=== PATIENT | female | born 1930 | race Caucasian/White ===

== ENCOUNTER → 2017-02-02 | Outpatient (CLI) | payer MEDICARE, BC, OTHER ==
--- NOTE | 2017-02-02 14:31 | CT ---
EXAMINATION TYPE: CT pelvis wo con DATE OF EXAM: 02/02/2017 COMPARISON: NONE HISTORY: Pain in lower back robin unspecified hip pain CT DLP: 969.87 mGycm Automated exposure control for dose reduction was used. FINDINGS: Patient is status post bilateral hip arthroplasties, streak artifact may be limiting the exam. Acetab ular screws breach the anterior cortex the acetabulum bilaterally. Degenerative disc changes are pres ent in the visualized spine. No evident pelvic adenopathy. Urine filled urinary bladder is noted. No free fluid. Diverticular change present within the sigmoid colon. Uterus and adnexal structures are n ot present. Atheromatous changes present within the pelvic arterial supply. Calcifications present at the origins of the hamstring musculature. Difficult to exclude partial tears. IMPRESSION: NO ACUTE ABNORMALITIES EVIDENT. POSTOP CHANGES. 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 DIVERTICULOSIS.
--- NOTE | 2017-02-02 14:36 | CT ---
EXAMINATION TYPE: CT lumbar spine wo con DATE OF EXAM: 02/02/2017 COMPARISON: NONE HISTORY: Pain in lower back and unspecified hip pain CT DLP: 837.16 mGycm Automated exposure control for dose reduction was used. An unenhanced CT of the lumbar spine was performed. Bone and soft tissue window settings are submitt ed as well as coronal and sagittal reconstructions. FINDINGS: There are round lesions associated with the kidneys, 2 of which show increased attenuation within the left kidney, findings may represent cysts, proteinaceous cysts. Ectasia of the abdominal a tita measures 2.9 cm in the infrarenal location. Lack of contrast may limit the exam. There is anterolisthesis grade 1 L4-5. Loss of disc height is present greatest at L4-5 with associate d vacuum phenomenon, spondylosis. L1-L2: Normal disc space height. No disc herniation protrusion or central stenosis. No facet joint arthropathy. No evidence for foraminal encroachment. L2-L3: Posterior broad-based disc bulge causes minimal anterior mass effect on the thecal sac. No sig nificant central canal stenosis or foraminal encroachment. L3-L4: Posterior broad-based disc bulge causes mild anterior mass effect on the thecal sac. There is facet arthropathy causing some posterior lateral mass effect on the thecal sac. Circumferential exten [place] of disc material towards the right and left causes some foraminal encroachment which is mild. L4-L5: Listhesis contributes to cause some foraminal encroachment. Broad-based posterior disc bulge c auses minimal anterior mass effect on the thecal sac. Facet arthropathy is extensive. No significant central stenosis. L5-S1: No evident foraminal encroachment or significant central stenosis. No sizable disc herniation. IMPRESSION: Degenerative disc disease, facet arthropathy, foraminal encroachment. Indeterminate foci within the k idneys. Abdominal aortic ectasia. There may be parapelvic cysts associated with the kidneys.
== END | disposition home or self-care (01) ==
LOC: RADCTMAIN 13:18
PROVIDERS: ATTEND Family Medicine
DX: M51.37 Other intervertebral disc degeneration, lumbosacral region (principal); M12.88 Other specific arthropathies, not elsewhere classified, other specified site; M25.559 Pain in unspecified hip; Z98.890 Other specified postprocedural states
CPT/HCPCS: 72131; 72192